=== PATIENT | male | born 1985 | race African-American/Black ===

== ENCOUNTER 2018-12-24 14:19 | Emergency (ER) | payer OTHER ==
[~2018-12-24] VITALS: Ht 172.7 cm; Wt 127.5 kg
[2018-12-24] MEDS ORDERED: KETOROLAC TROMETHAMINE 60 MG/2 ML VIAL IM ONE (14:30)
[2018-12-24] MEDS ORDERED: METHYLPREDNISOLONE SOD SUCC 125 MG/2ML VIAL INJ ONE (14:30)
[2018-12-24] MEDS ORDERED: METHYLPREDNISOLONE SOD SUCC 125 MG/2ML VIAL ONE (14:45)
[2018-12-24] MEDS ORDERED: KETOROLAC TROMETHAMINE 60 MG/2 ML VIAL ONE (14:45)
[2018-12-24 14:56] VITALS: BP 166/90
== END 2018-12-24 15:02 | disposition home or self-care (01) ==
LOC: FSED 14:19
DX: M25.572 Pain in left ankle and joints of left foot (principal); M10.072 Idiopathic gout, left ankle and foot
CPT/HCPCS: 96372; 99282; J1885; J2930